=== PATIENT | male | born 1990 | race Caucasian/White ===

== ENCOUNTER → 2016-10-29 | Outpatient (CLI) | payer OTHER ==
[2014-08-07 23:50] VITALS: BP 134/86
--- NOTE | 2016-11-01 07:33 | MRI ---
HISTORY: Low back pain Study: MRI lumbar spine without con Comparison: None Technique: Multiplanar multi-sequence MRI of the lumbar spine was obtained. Sagittal T1, sagittal T 2, and stir weighted images, axial T1, and axial T2 images were obtained. Findings: There is slight anterolisthesis L5 on S1 which appears to be due to bilateral spondylolysis at L5. T he lumbar spine demonstrates otherwise normal alignment with the expected signal characteristics of the bone marrow. The conus of the cord terminates normally. T12 -- L1: No evidence for compressive disc disease. The neural foramina are patent. The joints are normal. L1 -- L2: No evidence for compressive disc disease. The neural foramina are patent. The joints are n ormal. L2 -- L3: No evidence for compressive disc disease. The neural foramina are patent. The joints are n ormal. L3 -- L4: No evidence for compressive disc disease. The neural foramina are patent. The joints are n ormal. L4 -- L5: Circumferential disk bulging contributes to lateral recess narrowing bilaterally. The join ts are normal. L5 -- S1: There is grade 1 anterolisthesis L5 on S1 which appears to be due to bilateral spondylolys is at L5. It contributes along with some broad-based disc bulging to lateral recess and foraminal na rrowing bilaterally. IMPRESSION: As above Reported By:
== END | disposition home or self-care (01) | DRG 552 ==
LOC: RAD 15:32
PROVIDERS: ATTEND Internal Medicine
DX: M54.5 Low back pain (principal); M54.16 Radiculopathy, lumbar region
CPT/HCPCS: 72148